=== PATIENT | female | born 1950 | race Caucasian/White ===

== ENCOUNTER → 2018-08-28 | Outpatient (CLI) | payer OTHER, MEDICARE | LOC: RAD 11:52 | DX: Z12.31 Encounter for screening mammogram for malignant neoplasm of breast (principal) ==

== ENCOUNTER 2018-12-27 23:50 | Inpatient (IN) | payer OTHER, MEDICARE ==
[~2018-12-27] VITALS: Ht 160 cm; Wt 88.5 kg
[2018-12-28 01:40] VITALS: BP 184/64
[2018-12-28] MEDS ORDERED: AMITRIPTYLINE H10 M3 PO (03:54)
[2018-12-28] MEDS ORDERED: LISINOPRIL20 MG PO (03:58)
[2018-12-28] MEDS ORDERED: PRILOSEC 20 MG20 MG PO (03:59)
[2018-12-28] MEDS ORDERED: MAGOX 400400 MG PO (04:01)
[2018-12-28] MEDS ORDERED: ASPIR 8181 MG PO (04:02)
[2018-12-28] MEDS ORDERED: VITAMIN D5000 UNIT PO (04:02)
[2018-12-28] MEDS ORDERED: PAXIL10 MG PO (04:03)
[2018-12-28 04:13] LABS: HEMATOCRIT 48.4 % (37.0-47.0); HEMOGLOBIN 15.9 gm/dL (12.0-15.0); MCH 28.6 pg (26.0-34.0); MCHC 32.8 g/dL (28.0-37.0); MCV 87.1 fL (80.0-100.0); RBC 5.56 mil/uL (4.20-5.00); RDW 14.3 % (10.5-14.5); WBC 13.7 thou/uL (4.0-11.0)
[2018-12-28 04:27] LABS: ALBUMIN 3.6 g/dL (3.4-5.0); ANION GAP 15 mmol/L (7-16); BUN 14 mg/dL (7-18); CHLORIDE 105 mmol/L (98-107); CO2 20 mmol/L (21-32); CREATININE 0.9 mg/dL (0.6-1.0); GLUCOSE 164 mg/dL (74-106); POTASSIUM 4.3 mmol/L (3.5-5.1); SGOT 146 U/L (15-37); SGPT 503 U/L (30-65); SODIUM 140 mmol/L (136-145); TOTAL BILIRUBIN 2.9 mg/dL (<0.1-1.0); TOTAL PROTEIN 7.5 g/dL (6.4-8.2)
--- NOTE | 2018-12-28 04:29 | NUR ---
PT DIRECT ADMIT. ADMISSION COMPLETED, CARE PLAN ACTIVATED, ORDERS INITIATED. PT REPORTS NAUSEA, DENIES RECENT VOMITING. PT REPORTS PAIN IN ABDOMIN, PARTIALLY RELEIVED BY MEDICATION. PT ON 2L O2 VIA NC FOR COMFORT. VSS. PT FAMILY AT BEDSIDE. CALL LIGHT AND PERSONAL BELONGINGS WITHIN REACH. WILL CONTINUE POC UNTIL EOS.
[2018-12-28 04:42] LABS: LIPASE < 10 U/L (73-393)
[2018-12-28 04:50] VITALS: BP 150/53
[2018-12-28 07:56] VITALS: BP 150/76
[2018-12-28 15:15] VITALS: BP 162/78
[2018-12-28 19:08] VITALS: BP 153/81
--- NOTE | 2018-12-28 19:23 | NUR ---
Assumed pt care this am, pt has complained of pain and nausea through out the day, medications given with partial relief noted. Pt on NPO and will be maintained to be NPO til tomorrow am as per Dr. Humphreys. Seen by Dr. Humphreys, consent obtained for niurka mandel tomorrow. INstructed family on diet and pain medication frequency. Family was at bedside during the day. Informed night nurse on report.
[2018-12-29] VITALS (10 sets, daily range): BP systolic 122–149; BP diastolic 47–91
[2018-12-29 00:05] LABS: GLYCOHEMOGLOBIN (HGB A1C) 5.8 % (4.8-5.6)
--- NOTE | 2018-12-29 04:22 | NUR ---
PT A&O X4 ABLE TO MAKE NEEDS KNOWN. CALM AND COOPERATIVE. C/O ABD PAIN R/T PANCRATITIS PRN PAIN MEDS AVAILABLE. PT NPO POST MIDNITE. PRINCE CATHETER IN PLACE DRAINING WITHOUT ANY DIFFICULTIES. SCDS BLE. FAMILY AT BEDSIDE THROUGH OUT THIS SHIFT. SBA WITH TRANSFERS. NSR. CONT OF B&B
[2018-12-29 06:04] LABS: ALBUMIN 3.1 g/dL (3.4-5.0); CALCIUM 8.9 mg/dL (8.5-10.1); CREATININE 0.6 mg/dL (0.6-1.0); POTASSIUM 4.6 mmol/L (3.5-5.1); TOTAL BILIRUBIN 1.6 mg/dL (<0.1-1.0); TOTAL PROTEIN 5.9 g/dL (6.4-8.2)
--- NOTE | 2018-12-29 12:51 | NUR ---
ASSUMED PATIENT CARE AT 0715. A&OX4. COMPLAINTS OF SEVERE PAIN IN THE MORNING. DILAUDED GIVEN FOR PAIN. SURGERY TODAY BY DR. CALLEJAS. PATIENT BACK FROM PACU AT 1245. PATIENT STATES PAIN IS UNDER CONTROL AND "NOTHING COMPARED TO WHAT IT WAS BEFORE SURGERY". PRINCE CONNECTED TO DD. URINE IS BLOOD TINGED. 4 DERMABONDED LAP SITES. NO N/V. TOLERATING SMALL AMOUNTS OF CLEAR LIQUIDS. PATIENT PROGRESSING TOWARDS GOALS.
[2018-12-29] MEDS ORDERED: VITAMIN B-12500 MCG PO (13:37)
[2018-12-29] MEDS ORDERED: SPIRONOLACTONE100 M3 PO (13:39)
[2018-12-29] MEDS ORDERED: CARAFATE 1 GM TA1 G1 PO (13:40)
[2018-12-29] MEDS ORDERED: ANTIVERT25 MG PO (13:43)
[2018-12-29] MEDS ORDERED: TRAZODONE HCL100 MG PO (13:43)
[2018-12-29] MEDS ORDERED: FUROSEMIDE 40 M40 M1 PO (13:44)
[2018-12-29] MEDS ORDERED: AMARYL4 MG PO (13:45)
[2018-12-29] MEDS ORDERED: ZANAFLEX4 MG PO (13:45)
[2018-12-29] MEDS ORDERED: GLIPIZIDE 10 MG10 MG PO (13:46)
[2018-12-29] MEDS ORDERED: XIFAXAN550 M1 PO (13:47)
[2018-12-29] MEDS ORDERED: VISTARIL 25 MG25 M1 PO (13:48)
[2018-12-29] MEDS ORDERED: OMEPRAZOLE20 M2 PO (13:49)
[2018-12-29] MEDS ORDERED: PHENERGAN 25 MG25 M1 PO (13:49)
[2018-12-30 03:55] VITALS: BP 116/60
[2018-12-30 04:18] LABS: ALBUMIN 2.4 g/dL (3.4-5.0); CALCIUM 8.3 mg/dL (8.5-10.1); CREATININE 0.6 mg/dL (0.6-1.0); POTASSIUM 3.8 mmol/L (3.5-5.1); TOTAL BILIRUBIN 1.3 mg/dL (<0.1-1.0); TOTAL PROTEIN 5.5 g/dL (6.4-8.2)
--- NOTE | 2018-12-30 06:00 | NUR ---
DILAUDID HELPFUL FOR PAIN, IV SITE NEEDED SWITCHING TWICE OVERNIGHT. USING IS GREATER THAN 1000, FAMILY STAYING OVERNIGHT. FEELS BETTER SITTING AT EDGE OF BED AT THIS TIME. LAP SITES INTACT.
[2018-12-30 07:29] VITALS: BP 125/64
[2018-12-30] MEDS ORDERED: TRAMADOL 50 MG50 MG PO (10:42)
[2018-12-30 16:00] VITALS: BP 132/64
--- NOTE | 2018-12-31 02:37 | NUR ---
ASSUMED CARE AT 1900. AXOX4. LAP SITES INTACT W/O S/S INFECTION. PERSISTENT PAIN AND NAUSEA MANAGED WITH MEDICATIONS PER MD ORDER. COMPAZINE ORDERED ADDITIONALLY PER PT REPORTING INADEQUATE RELIEF FROM ZOFRAN. NOTED BUE RENDESS AND BRUSING. PER MD, IT HAPPENED FROM [facility] TRIES FOR IV INSERTION AT [place] WHEN SHE WAS ADMIITED TO [place]. APPLIED ICE AND PT REPORTS RELIEF. TELE MONITORING READING SR. URINARY CATHETER WAS REMOVED 12/30/18 AFTERNOON AND PT HAS BEEN HAVING ADEQUATE OUTPUT SINCE D/C OF THE CATHETER. NO S/S ACUTE DISTRESS NOTED OR REPORTED AT THIS TIME. WILL CONT TO MONITOR FOR ANY CHANGES IN CONDITION.
[2018-12-31 05:04] VITALS: BP 125/57
[2018-12-31 06:47] LABS: ALBUMIN 2.6 g/dL (3.4-5.0); DIRECT BILIRUBIN 0.6 mg/dL (<0.1-0.3); TOTAL BILIRUBIN 1.3 mg/dL (<0.1-1.0); TOTAL PROTEIN 6.2 g/dL (6.4-8.2)
[2018-12-31 07:37] VITALS: BP 133/64
[2018-12-31] MEDS ORDERED: ZOFRAN ODT4 MG PO (10:39)
[2018-12-31] MEDS ORDERED: OXYCODONE HCL 55 MG PO (10:39)
--- NOTE | 2018-12-31 15:03 | NUR ---
PT ADMITTED RELATED TO PANCREATITIS. CM REVIEWED CHART AND SPOKE WITH CARE TEAM. CM MET WITH PT AT BEDSIDE THIS DAY. PT IS A&O X4. CM ROLE INTRODUCED. PT INDICATED SHE LIVES IN A HOUSE WITH HER SPOUSE, SON, AND DTR. THEY INDICATED 3 STEPS TO ENTER AND 4 STEPS THROUGH THE GARAGE. 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 SHE INDICATED NO DME OR HH HX. HER PCPC IS DR. TETE GARNER. SHE PLANS TO RETURN HOME ONCE MEDICALLY STABLE. CM TO FOLLOW INDICATED WITH DC PLANNING.
[2018-12-31 16:10] VITALS: BP 149/58
--- NOTE | 2018-12-31 17:56 | NUR ---
PT STABLE [facility]ROUGHOUT [facility]. PT C/O PAIN IN AM- GAVE DILAUDID. LATER SWITCHED TO ORAL MED. PT HAD NO COMPLAINTS UNTIL LATE AFTERNOON, HOWEVER SHE STATED THE ORAL PAIN MED "DID NOTHING". PT RESTING, WILL CONTINUE TO MONITOR.
[2018-12-31 19:41] VITALS: BP 138/69
--- NOTE | 2019-01-01 02:51 | NUR ---
Assumed care 1845. Pt resting in bed. She still has been vomiting every now and then. Increased the frequency of zofran. It seemed to have been helping than other meds. VSS. and daughter at bedside. No identified needs at the moment. Will continue to monitor.
[2019-01-01 03:18] VITALS: BP 141/55
[2019-01-01 07:15] VITALS: BP 149/67
--- NOTE | 2019-01-01 08:22 | NUR ---
PT A&0X4, AMB INDEPENDENTLY AND STEADY, FAMILY AT BEDSIDE, STATES HER PAIN AND NAUSEA HAVE INCREASED. TOOK OXYCODONE YESTERDAY, ASKED PAIN 4-5/10, CALLED PHYSICIAN TO GIVE FYI ON INCREASE IN SX AND OTHER ORDERS. ASKED HER TO LEAVE EMESIS IN BASIN FOR GI TO OBSERVE, STATES EMESIS 3-4X THROUGH NIGHT. PASSING GAS NO BM SINCE PRIOR TO SURGERY. ENCOURAGED ALL TO USE CALL LIGHT FOR ANY NEEDS
--- NOTE | 2019-01-01 09:52 | NUR ---
PT'S IV REPORTED BEING TEMPERMENTAL NEEDING PRESSURE TO DELIVER MEDS, WITH PT'S AMBULATION THIS A.M. IT'S HALF OUT, REMOVED, WILL START ANOTHER SOON FOR ANTIEMETIC NEEDS WELL, ASKING FOR SHOWER/AIDE WILL DELIVER LATER
--- NOTE | 2019-01-01 11:09 | PATH ---
[facility] [address] [place] [address] PATHOLOGY RPT PROCEDURE Name: BASSAMSOPHIAISAAC L Room #: 450-P ADM IN M.R.#: [id number] ������������������ Admission: 12/27/18 ������������������ Date of : 48 Discharge: Report #: [id number] Path Case #: [id number] [facility] Accession Number: [id number] . 01 Material submitted: . PART A: PERITONEAL BIOPSY PART B: GALLBLADDER . 01 Clinical history: . Pancreatitis . 02 Diagnosis: A. Peritoneum, biopsy: - Marked acute inflammation associated with fibrinoid degenerative as well as areas of fat necrosis, clinical history of pancreatitis. - Negative for malignancy. . B. Gallbladder, cholecystectomy: - Moderate acute and chronic cholecystitis associated with mucinous and intestinal metaplasia. - Negative for dysplasia. - Cholelithiasis. - Reactive lymph node. . (IUV:rambo; 12/31/2018) MBR/12/31/2018 . 02 Electronically signed: . Jolanta Denise MD, Pathologist NPI- [id number] . 01 Gross description: . A. The specimen is received in formalin, labeled "Isaac Tanner, peritoneal biopsy", are few yellow lobulated adipose tissue fragments measuring 1.5 x 1.0 x 0.5 cm in aggregate. Several fragments has possible oliveira-white nodules/fat necrosis. The specimen is entirely submitted in A1. . B. The specimen is received in formalin, labeled "Isaac Tanner, gallbladder", is a previously opened gallbladder measuring 8.2 x 3.7 cm with a fibrous wall that has an average thickness of 0.2 cm. Within the cystic duct region there is a possible beckett-pink rubbery lymph node measuring 0.5 cm in greatest dimension. The mucosa is yellow-green and granular. No discrete masses are identified. Within the container there is an oval irregularly surfaced yellow-green calculus measuring 3.0 x 2.2 x 2.0 cm. [employer] tissue is submitted in B1. (SWS; 12/30/2018) [place] [address] PATHOLOGY RPT PROCEDURE Name: ISAAC TANNER Room #: 450-P ADM IN M.R.#: [id number] ������������������ Admission: 12/27/18 ������������������ Date of : 48 Discharge: Report #: [id number] Path Case #: [id number] / . 02 Pathologist provided ICD-10: K65.9, K65.4, K80.12 . 02 CPT . 937866, [id number] Specimen Comment: A courtesy copy of this report has been sent to Specimen Comment: [phone], , . Specimen Comment: Report sent to , DR KWAN / DR DUNN Specimen Comment: A duplicate report has been generated due to demographic updates. Performed at: 01 [facility] [address] [place] [address] [address], [place] [id number] MD Oz Villa MD Phone: [phone] Performed at: 02 [facility] [place] [address], [place], [place] [id number] MD Kathy Dash MD Phone: [phone]
[2019-01-01 13:34] VITALS: BP 153/73
--- NOTE | 2019-01-01 14:51 | NUR ---
PT STATES THE NAUSEA MEDICATION OVER NIGHT WASN'T WORKING, NAUSEA HAD INCREASED. RECEIVED ORDERS FOR PO ANTIEMETIC, CALLED RX TO ASK FOR THIS TO BE ACCESSIBLE IMMEDIATELY FROM [facility], THEY CALLED BACK TO SAY COMPUTER SYSTEMS INFORMATION DIRECTOR WAS IN THE SYSTEM, IV TEAM STARTED NEW IV, ANTIEMETIC AND PAIN MED GIVEN IV. STOOL SUPPOSITORY INSERTED, LASTED AN HOUR AND PT HAD GAS AND EXPULSION OF THE SUPPOSITORY, GI WORKING WITH PT AT THIS TIME. SYMPTOMS RELIEVED AT THIS TIME, WILL CONTINUE TO MONITOR AND GIVE MEDS TO MANAGE SX.
[2019-01-01 17:06] LABS: CALCIUM 8.4 mg/dL (8.5-10.1); CREATININE 0.6 mg/dL (0.6-1.0); POTASSIUM 3.2 mmol/L (3.5-5.1)
[2019-01-01 18:11] LABS: ALBUMIN 2.4 g/dL (3.4-5.0); DIRECT BILIRUBIN 0.6 mg/dL (<0.1-0.3); TOTAL BILIRUBIN 0.9 mg/dL (<0.1-1.0); TOTAL PROTEIN 5.3 g/dL (6.4-8.2)
[2019-01-01 19:15] VITALS: BP 126/66
[2019-01-02 04:15] VITALS: BP 127/62
--- NOTE | 2019-01-02 04:35 | NUR ---
Assumed care at 1845. Pt resting in bed. She hasnt had any episode on N/V. Pain seems to be under control with the fentanyl. Family is at bedside. No identified needs at the moment. Will continue to monitor.
[2019-01-02 07:57] VITALS: BP 171/67
[2019-01-02] MEDS ORDERED: ALPRAZOLAM 0.0.25 M1 PO (10:06)
[2019-01-02] MEDS ORDERED: ACETAMINOPHEN325 M1 PO (10:06)
[2019-01-02] MEDS ORDERED: PEPCID20 MG PO (10:06)
--- NOTE | 2019-01-02 10:07 | PATH ---
[facility] [address] [address] PATHOLOGY RPT PROCEDURE Name: ISAAC TANNER Room #: 450-P ADM IN .R.#: [id number] ������������������ Admission: 12/27/18 ������������������ Date of : 48 Discharge: Report #: [id number] Path Case #: [id number] Note [facility] Accession Number: [id number] TESTS RESULT FLAG UNITS REF RANGE LAB Clinician Provided Cytology Information No. of containers..01 Other (Miscellaneous) Source: PERITONEAL FLUID DIAGNOSIS: 02 PERITONEAL FLUID NEGATIVE FOR MALIGNANT CELLS. REACTIVE MESOTHELIAL CELLS ARE PRESENT. THIS INTERPRETATION INCLUDES EVALUATION OF A CELL BLOCK. MARKED ACUTE INFLAMMATION AND FIBRINOID DEGENRATION. Pathologist ICD10: 02 K85.90 Signed out by: Jolanta Denise MD, Pathologist NPI- [id number] Performed by: Khushi Alvarez, [employer] Clerk ([facility]) Gross description: 01 7ML, RED, /LCS FLAG LEGEND: L-Low Normal,H-High Normal,LL-Alert Low,HH-Alert High <-Panic Low,>-Panic High,A-Abnormal,AA-Critical Abnormal Performed at: [address] [place] [address] Oz Villa MD, [address] [address] Jolanta Denise MD, Specimen Comment: A courtesy copy of this report has been sent to Specimen Comment: [phone]. Specimen Comment: Report sent to Specimen Comment: A duplicate report has been generated due to demographic updates. Performed at: [address], [place], [place] [id number] MD Oz Villa MD Phone: [phone]
[2019-01-02 14:09] VITALS: BP 154/67
[2019-01-02 18:39] VITALS: BP 154/67
--- NOTE | 2019-01-02 19:47 | NUR ---
ASSUMED PATIENT CARE AT 0715. PATIENT SLEPT IN UNTIL 0900. HAD SEVERAL SMALL GREEN BILE EMESIS. HAD GOOD RELIEF AFTER PHENERGAN SUPPOSITORY. EATING ABOUT 25% OF MEALS. TOLERATING LIQUIDS. COMPLAINED OF LOWER ABD PAIN THIS AFTERNOON. STATED FEELS LIKE SHE NEEDS TO HAVE A BOWELL MOVEMENT. FLEETS ENEMA GIVEN AND HAD A SMALL TO MODERATE HARD DARK BROWN STOOL. REQUESTED A REGULAR ENEMA WHICH WAS GIVEN AND HAD ANOTHER SMALL HARD BM. AFTER ENEMAS PATIENT STATED FEELING MUCH BETTER AND IS READY TO GO HOME. UP INDEPENDENTLY AND TOLERATING WELL. DISMISSED HOME AT 1850 IN STABLE CONDITION.
--- NOTE | 2019-01-05 21:31 | O ---
[facility] [place] [address] OPERATIVE REPORT Name: ISAAC TANNER Blanka Room #: 450-P [facility] IN .R.#: [id number] Admission: 12/27/18 ������������������ Attend Phys: Edwin Castro Olga Discharge: 01/02/19 ������������������ Date of : 48 Report #: [id number] THIS REPORT FOR: //name// CC: Gael Zarate DATE OF SERVICE: 12/29/2018 SURGEON: Toby Humphreys MD. INSPECTOR HAIRSPRING: None. PREOPERATIVE DIAGNOSES: 1. Gallstone pancreatitis. 2. Hypertension. POSTOPERATIVE DIAGNOSES: 1. Gallstone pancreatitis. 2. Incarcerated umbilical hernia. 3. Intra-abdominal nodules. 4. Hypertension. PROCEDURE: 1. Laparoscopic cholecystectomy with intraoperative cholangiogram. 2. Laparoscopic primary repair of incarcerated umbilical hernia. 3. Peritoneal biopsies (cold forceps). ANESTHESIA: General endotracheal anesthesia and local anesthetic. ESTIMATED BLOOD LOSS: 10 mL. SPECIMENS: 1. Peritoneal fluid. 2. Peritoneal biopsies. 3. Gallbladder. COMPLICATIONS: None appreciated. INDICATIONS FOR PROCEDURE: This is a 68-year-old female patient who was [facility] to [facility] with acute onset abdominal pain. She was found to have elevated liver function tests and an elevated lipase of 16,000. Her CT scan was consistent with pancreatitis. Her liver function tests and lipase levels improved substantially. Abdominal ultrasound revealed a large gallstone filling approximately 1/3rd of the gallbladder with no findings for acute cholecystitis. The patient presents now for laparoscopic cholecystectomy with cholangiogram. [facility] [address] [place] [address] OPERATIVE REPORT Name: ISAAC TANNER Room #: 450-P [facility] IN .R.#: [id number] Admission: 12/27/18 ������������������ Attend Phys: Edwin Jackson Discharge: 01/02/19 ������������������ Date of : 48 Report #: [id number] OPERATIVE FINDINGS: Upon entrance into the abdominal cavity, peritoneal nodules were seen lining the viscera and on the omentum. Biopsies were taken with a cold forceps and with the ultrasonic dissector to perform the small omental biopsy. The liver was slightly enlarged without roger steatohepatitis. The gallbladder appeared to have chronic inflammatory changes as omental adhesions to the gallbladder were present. After taking these down, I was able to identify the critical view of safety consisting of cystic artery, cystic duct and lower edge of the gallbladder forming a window through which the liver was visible. The cholangiogram revealed no filling defects within the biliary tree. The biliary tree itself was slightly dilated; however, there was free flow of contrast into the duodenal sweep. I did not appreciate mass effect on the common bile duct. After removal of the gallbladder, 3 clips remained on the cystic duct stump. While removing the gallbladder, the omentum was seen extending up to the anterior abdominal wall where an umbilical hernia defect was present. There was no bowel involvement. After removing the gallbladder, repair of the incarcerated umbilical hernia was amenable to primary repair with a separate [id number] 0 PDS suture. Upon reentrance into the abdominal cavity, the abdomen was explored to attempt to identify an etiology of the peritoneal nodules. I did not appreciate any extrinsic colonic mass or small bowel mass. The stomach, small bowel and colon all appeared normal. Hysterectomy changes were present. There was increased nodularity on the peritoneum overlying the urinary bladder. At the conclusion of the operation, the sponge, needle, and instrument counts were correct. DESCRIPTION OF PROCEDURE IN DETAIL: After the risks, benefits, and expectations of the operation were discussed in detail with the patient, informed consent was obtained. The patient was identified in the preoperative holding area. She was given IV antibiotics as documented in the chart in [facility]. The patient was then taken to the operating room and she was placed in the supine position. SCDs were placed on the patient's bilateral lower extremities and pneumatic compression was initiated. The patient was then given IV sedation and she was intubated without incident. Her abdomen was prepped and draped in the standard sterile fashion. A timeout was performed to identify the correct patient and procedure. Local anesthetic was infiltrated into the skin and subcutaneous tissue supraumbilically where a curvilinear incision was made with a #15 blade scalpel. issection was carried down to the fascia. An 11-mm Visiport was placed intraperitoneally with a 0-degree angled laparoscope. Pneumoperitoneum was achieved with insufflation of carbon dioxide to 15 mmHg. A 30-degree angled laparoscope was inserted. Additional 5-mm ports were placed in the subxiphoid area as well as in the right subcostal area x 2 under direct visualization after local anesthetic was infiltrated into the skin and subcutaneous tissue and appropriately sized incisions were made. Operative findings were as noted above. [address] [address] OPERATIVE REPORT Name: ISAAC TANNER Room #: 450-P [facility] IN M.R.#: [id number] Admission: 12/27/18 ������������������ Attend Phys: Edwin Jackson Discharge: 01/02/19 ������������������ Date of : 48 Report #: [id number] The dome of the gallbladder was retracted in a cephalad direction. The omental adhesions to the gallbladder were carefully taken down with the ultrasonic dissector with good hemostasis. With cephalad traction on the gallbladder, the gallbladder peritoneum was scored medially and laterally. Dissection was then carried out around the cystic artery and cystic duct to identify both structures as the only two structures entering the gallbladder. The cystic duct was clipped at its junction with the neck of the gallbladder. A ductotomy was then sharply created and a cholangiocatheter was inserted and a cholangiogram was inserted. Findings were as noted above. The cholangiocatheter was then removed. The cystic duct was triply clipped distal to the ductotomy and divided with the ultrasonic dissector with a good seal. The cystic artery was divided with the ultrasonic dissector with good hemostasis as well. The gallbladder was then dissected out of the liver bed. After detaching the gallbladder, it was placed in an Endopouch and removed through the supraumbilical port site. While doing so, the omental adhesion to the anterior abdominal wall was identified. This was dissected free to reveal the incarcerated umbilical hernia with no bowel involvement. An 0 PDS suture was placed to close the port site fascial opening. The suture was tagged. A separate [id number]-uz-[id number] 0 PDS suture was placed with the Ha-Imani laparoscopic fascial closure device to close the hernia defect. The hernia suture was tied under direct visualization to ensure no incorporation of intra-abdominal content. The 11-mm port was replaced. The abdominal cavity was reentered. Peritoneal biopsies were taken next. The wavy grasper was used to remove several pieces of visceral peritoneum as well as using the ultrasonic dissector to remove a small piece of omentum containing multiple nodules. All specimens were sent for pathology. The abdominal cavity was then suctioned. Fluid was collected for cytology. After ensuring final hemostasis, the port site fascial suture was tied under direct visualization. The abdominal cavity was desufflated and the remaining ports were removed. Interrupted subcuticular 4-0 Monocryl sutures and Dermabond were used to close the skin incisions. The patient tolerated the procedure well. She was awakened, extubated, and taken to recovery room in stable condition with no apparent intraoperative complications. I discussed the case with Gastroenterology, who has talked with the patient about a colonoscopy. Given the intraoperative findings, colonoscopy is recommended sooner. The patient does have a positive family history for colon cancer in her father. I have ordered CEA and CA 19-9 levels. [address] [address] OPERATIVE REPORT Name: FLORESISAAC L Room #: 450-P [facility] IN [facility].#: [id number] Admission: 12/27/18 ������������������ Attend Phys: Edwin Jackson Discharge: 01/02/19 ������������������ Date of : 48 Report #: [id number] will discuss lower endoscopy further with the patient. She will be placed on clear liquids for now. ��������������������������������������������� <ELECTRONICALLY SIGNED> ���������������������������������������� By: Toby Humphreys MD, FACS ��������������������������������������������� 01/05/19 2131 1318 1850 Toby Humphreys MD, FACS /nt
== END 2019-01-02 19:37 | disposition home or self-care (01) | DRG 353 ==
LOC: 4W 23:50 → ENTRNSPT 01-02 19:17 → 4W 01-02 19:37
PROVIDERS: Internal Medicine Gastroenterology; Nurse Practitioner; Nurse Practitioner Acute Care; Surgery; ADMIT Hospitalist
DX: K42.0 Umbilical hernia with obstruction, without gangrene (principal); K85.10 Biliary acute pancreatitis without necrosis or infection; E43 Unspecified severe protein-calorie malnutrition; K91.89 Other postprocedural complications and disorders of digestive system; K56.7 Ileus, unspecified; E87.6 Hypokalemia; I10 Essential (primary) hypertension; R73.9 Hyperglycemia, unspecified; E78.5 Hyperlipidemia, unspecified; K21.9 Gastro-esophageal reflux disease without esophagitis; G43.909 Migraine, unspecified, not intractable, without status migrainosus; R19.07 Generalized intra-abdominal and pelvic swelling, mass and lump; Z88.6 Allergy status to analgesic agent; Z88.0 Allergy status to penicillin; Z90.710 Acquired absence of both cervix and uterus; Z80.0 Family history of malignant neoplasm of digestive organs; Z79.82 Long term (current) use of aspirin; Z79.899 Other long term (current) drug therapy
CPT/HCPCS: 10040; 50101; 50249; 50411; 50555; 50558; 50962; 51489; 51975; 52265; 53307; 54022; 54118; 55245; 55317; 56462; 56525; 56526; 62110; 62900; 70005